=== PATIENT | female | born 1980 | race Hispanic/Latino ===

== ENCOUNTER → 2021-10-21 | Outpatient (CLI) | payer BC | END | disposition home or self-care (01) | LOC: RAH 09:57 | PROVIDERS: ATTEND Family Medicine | DX: M48.02 Spinal stenosis, cervical region (principal); M43.8X2 Other specified deforming dorsopathies, cervical region; E04.1 Nontoxic single thyroid nodule; M54.2 Cervicalgia; M62.838 Other muscle spasm | CPT/HCPCS: 72040; 76536 ==